=== PATIENT | male | born 1995 | race African-American/Black ===

== ENCOUNTER 2024-04-05 17:26 | Emergency (ER) | payer OTHER ==
[2024-04-05 17:32] VITALS: BP 136/90; PULSE 85; RESP 18; TEMP 98.2; BMI 31.3
[2024-04-05] MEDS ORDERED: ERYTHROMYCIN 0.5% OPHTHALMIC OINTMENT 3.5 GM TUBE ONE (20:17)
[2024-04-05] MEDS: ERYTHROMYCIN 0.5% OPHTHALMIC OINTMENT 3.5 GM TUBE OS SCH (20:19)
== END 2024-04-05 20:22 | disposition home or self-care (01) ==
LOC: JERFT 17:26
DX: H10.32 Unspecified acute conjunctivitis, left eye (principal)
CPT/HCPCS: 99283-25